=== PATIENT | male | born 1985 | race Caucasian/White ===

== ENCOUNTER → 2017-05-14 | Outpatient (CLI) | payer MEDICAID ==
[~2017-05-14] MED LIST: ATIVAN GENERIC0.5 MG PO; ATIVAN1 MG PO; KEFLEX 500MG.500 MG PO; MECLIZINE HYDRO25 MG PO; NOMEDS; PREDNISONE 20MG20 MG PO; ZANTAC 150150 MG PO; ZANTAC 300300 MG PO
[2017-05-14 19:45] LABS: AMPHETAMINES/METAMPHETAMINES NEGATIVE ng/mL (<1000)
[2017-05-20 14:36] LABS: Alprazolam Negative (Cutoff=100); Benzodiazepines Positive ng/mL (Cutoff=100); Clonazepam Negative (Cutoff=100); Flurazepam Negative (Cutoff=100); Lorazepam Positive (.); Midazolam Negative (Cutoff=100); Temazepam Negative (Cutoff=100); Triazolam Negative (Cutoff=100)
== END ==
LOC: LAB 17:56
PROVIDERS: Emergency Medicine; Nurse Practitioner Family
DX: Z79.899 Other long term (current) drug therapy (principal)
CPT/HCPCS: G0480